=== PATIENT | female | born 1945 | race Caucasian/White ===

== ENCOUNTER 2017-08-12 16:38 | Inpatient (IN) | payer OTHER ==
[~2017-08-12] VITALS: Ht 154.9 cm; Wt 84.6 kg
--- NOTE | ~2017-08-12 | H ---
[facility] [place] [address] HISTORY AND PHYSICAL Name: MARYANA KIDD I Room #: 516-1 [facility] IN M.R.#: [id number] Admission: 08/12/17 Attend Phys: Chan Cruz MD Discharge: 08/20/17 Date of : 43 Report #: [id number] THIS REPORT FOR: //name// CC: Chan Garcia DATE OF SERVICE: 08/13/2017 HISTORY OF PRESENT ILLNESS: The patient is a 71-year-old white female originally admitted to [facility] with rectal bleeding. She was noted to be anemic and underwent EGD, which showed duodenal ulcers. Flexible sigmoidoscopy showed evidence of melena. This was performed on 07/29/2017. She was treated for healthcare-associated pneumonia and acute respiratory failure. She was noted to have an apparent sedation-induced respiratory insufficiency. She was noted to have premorbid O2 dependent COPD. She has medical complexity with generalized debilitation. She was admitted for acute in-hospital inpatient rehabilitation. PAST MEDICAL HISTORY: COPD O2, dependent, typically on 3 liters; nonischemic cardiomyopathy; mild pulmonary hypertension; diabetes mellitus type 2; hyperlipidemia; hypertension; GERD; history of breast cancer treated with readmission therapy, no chemotherapy; history of anemia. PAST SURGICAL HISTORY: Includes breast cancer and cholecystectomy. MEDICATIONS: Please see the full medication listing. Each of these was individually reconciled upon admission and includes vitamins, herbals and supplements, etc. SOCIAL HISTORY: with 2 dogs. She lives with her in a house. There were two steps in. She utilized a walker to get around and also has a wheelchair. HABITS: Ex-smoker, quitting over 10 years ago with a pack and a half per day for at least 30 years. No history of alcohol consumption. FAMILY HISTORY: Father of COPD. Mother had coronary artery disease. REVIEW OF SYSTEMS: No current complaints of chest pain, shortness of breath, abdominal discomfort. She does have a history of some chronic back pain. No other focal extremity pain complaints. She was on oxygen premorbidly. No current complaints of swallowing difficulties. PHYSICAL EXAMINATION: A 71-year-old white female, in no obvious distress. Last recorded temperature 36.7, pulse 76, respirations 20, blood pressure 137/68. She is sleepy, but will respond. [address] [address] HISTORY AND PHYSICAL Name: MARYANA KIDD I Room #: 516-1 [facility] IN .R.#: [id number] Admission: 08/12/17 Attend Phys: Chan Cruz MD Discharge: 08/20/17 Date of : 43 Report #: [id number] HEENT: Appeared to be benign. Nasal prong O2 is in place. CHEST: Some diffuse decreased breath sounds throughout. CARDIOVASCULAR: Sounded regular rate and rhythm. ABDOMEN: Bowel sounds positive, nontender. GENITOURINARY AND RECTAL: Deferred. EXTREMITIES: She has functional range of motion of both upper extremities. She notes a prior history of some rotator cuff problems. No obvious focal weakness. NEUROLOGIC: Lower extremities, no focal calf swelling. Strength is grade 4-/5. DTRs are trace to 1. Transfers have been min assist with short distance ambulation. ASSESSMENT: This is a 71-year-old white female with the following problem list: 1. Medical complexity with generalized debilitation. 2. Pulmonary rehabilitation. 3. Gastrointestinal bleed with multiple duodenal ulcers. 4. Acute respiratory failure. 5. Chronic obstructive pulmonary disease. 6. Chronic hypoxemic respiratory failure. 7. History of atrial fibrillation. 8. Heart disease. 9. Prior history of syncopal episode. PLAN: The patient was admitted for acute in-hospital inpatient rehabilitation. From a post-admission physician evaluation perspective, there are no relevant changes since the preadmission screening. Please see the above review of prior and current medical and functional conditions and comorbidities. Please see the previous and current functional status. As far as risk of complications, she has the multiple noted comorbidities. Plan of care involves the interdisciplinary acute inpatient rehabilitation program with the goal of maximizing her functional independence, so she can return back to the home setting. We would anticipate length of stay of probably at least 10 days pending progress. We will have the multiple senior application security consultant physicians involved along with the interdisciplinary rehabilitation team. Prognosis is reasonably good. <ELECTRONICALLY SIGNED> By: Chan Cruz MD 08/22/17 1423 0916 1039 Chan Cruz MD /[facility]
--- NOTE | ~2017-08-12 | HC ---
[facility] [place] [address] CONSULTATION Name: MARYANA KIDD I Room #: 516-1 [facility] IN M.R.#: [id number] Admission: 08/12/17 Attend Phys: Chan Cruz MD Discharge: 08/20/17 Date of : 43 Report #: [id number] THIS REPORT FOR: //name// CC: Chan Garcia DATE OF SERVICE: 08/15/2017 NEUROPSYCHOLOGY CONSULTATION LETTER CARRIER: Chan Nevarez, PhD REASON FOR CONSULTATION: To provide information pursuant to treatment planning for the patient's inpatient rehabilitation program. HISTORY OF PRESENT ILLNESS: Records indicate that the patient was admitted due to rectal bleeding, and examination indicated that she had duodenal ulcers. Review of her problem list in her history and physical reveals the following identified problems: 1. Medical complexity with generalized debilitation. 2. Pulmonary rehabilitation. 3. Gastrointestinal bleed with multiple duodenal ulcers. 4. Acute respiratory failure. 5. Chronic obstructive pulmonary disease. 6. Chronic hypoxemic respiratory failure. 7. History of atrial fibrillation. 8. Heart disease. 9. Prior history of syncopal episode. ASSESSMENT METHOD: Clinical interview, review of records, consultation with unit staff were conducted. RESULTS OF EXAMINATION: The patient was interviewed lying in her hospital bed, awake and alert, with a friendly and open manner. She stated she was feeling pretty good about herself because earlier in the day, she had taken her first 4 steps since being hospitalized. She stated that this gives her hope that she will continue to recover and return home. She reported that she has lived in the [place] area since 2000 when she and her moved here to be near their daughter and grandchild. 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 She reported that she has struggled with mild depression for many years since the of her mother, and said that she has taken generic Paxil for a long time and that this helped some. A mini-mental status exam-2 was administered and the patient achieved a perfect score, at the 86th percentile compared to same age peers. There are no noted [facility] [address] [place] [address] CONSULTATION Name: MARYANA KIDD I Room #: 516-1 [facility] IN M.R.#: [id number] Admission: 08/12/17 Attend Phys: Chan Cruz MD Discharge: 08/20/17 Date of : 43 Report #: [id number] deficits of cognitive function. SUMMARY AND RECOMMENDATIONS: This patient displays intact cognition and memory at this time. She reports mild depression, likely somewhat exacerbated by her hospitalization. She reports Paxil has been helpful in the past. Supportive therapy to address any depressive symptoms would be recommended. DIAGNOSIS: Unspecified depressive disorder. <ELECTRONICALLY SIGNED> By: Chan Nevarez, PhD 08/22/17 1510 1715 0333 Chan Nevarez PhD /lissette
--- NOTE | ~2017-08-12 | PLAN ---
[facility] [place] [address] REHAB UNIT PLAN OF CARE Name: MARYANA KIDD I Room #: 516-1 [facility] IN M.R.#: [id number] Admission: 08/12/17 Attend Phys: Chan Cruz MD Discharge: 08/20/17 Date of : 43 Report #: [id number] THIS REPORT FOR: //name// CC: Chan Garcia DATE OF SERVICE: 08/14/2017 HISTORY: The patient was seen back today in followup. She was in no distress. Last recorded temperature is 98.7, pulse 78, respirations 20, blood pressure 138/68. The patient has been involved with the therapy program. Transfers bed to wheelchair and mod assist utilizing the sliding board. Gait max assist 1 foot in the parallel bars. In occupational therapy, lower body dressing is dependent, upper body dressing is max assist. ASSESSMENT: 1. Medical complexity with generalized debilitation. 2. Pulmonary rehabilitation with acute on chronic hypoxemic respiratory failure. 3. Gastrointestinal bleed with melena related to duodenal ulcers. 4. Bilateral lower lobe infiltrates with pneumonia. 5. Chronic obstructive pulmonary disease. 6. History of atrial fibrillation. 7. Obstructive sleep apnea. PLAN: The overall plan of care is based on the preadmission screen, post-admission physician evaluation and information garnered from therapy assessments. 1. Estimated length of stay is probably at least 10 days pending progress. 2. Medical prognosis is reasonably good. 3. Anticipated interventions includes the interdisciplinary acute inpatient rehabilitation program. 4. Anticipated functional outcomes would hopefully for the patient to become modified independent at the walker versus wheelchair level. 5. Discharge destination would be back home with her . 6. Expected therapy by discipline include PT and OT 1-1/2 hours per day each five days a week throughout the duration of the acute inpatient rehabilitation stay. The multiple application security consultant physicians will continue to follow all the patient's on the acute rehab elam. <ELECTRONICALLY SIGNED> By: Chan Cruz MD 08/22/17 1423 0910 2254 Chan Cruz MD /[facility]
[~2017-08-12 16:38] MED LIST: ACCUNEB1.25 MG/3 IH; ACETAMINOPHEN325 M1 PO; ADULT LOW DOSE81 MG PO; ALBUTEROL2.5 MG/0.1 INH; AMARYL2 MG PO; AMBIEN 5 MG TABL5 M1 PO; AMLODIPINE BESY10 MG PO; ANASTROZOLE1 MG PO; ARIMIDEX1 MG PO; ASPIRIN81 M2 PO; ATORVASTATIN CA40 MG PO; AUGMENTIN 875-1 EACH PO; AVELOX 400 MG400 MG OR; CALCIUM 600 +1 EAC1 PO; CALCIUM CITRAT1 EA14 PO; CARAFATE 1 GM TA1 G1 PO; CARDIZEM CD180 MG PO; CITRACAL PLUS1 EACH PO; COZAAR 50 MG TA50 M2 PO; CRESTOR20 MG PO; DEXILANT60 MG PO; DIOVAN HCT 1601 EACH PO; DIOVAN HCT 3201 EACH PO; DUONEB 2.5-0.5 M3 ML INH; FISH OIL 1,2001 EAC4 PO; FISH OIL SOFTG1 EACH PO; GLIMEPIRIDE1 MG PO; GLUCOPHAGE500 MG PO; ICAPS AREDS FO1 EACH PO; ICAPS TABLET1 EACH PO; IRON325 PO; LEVAQUIN 500 M500 M2 PO; LIPITOR20 MG PO; METOPROLOL TART25 MG PO; MULTI VITAMIN1 EACH PO; NEPHROCAPS SOFT1 CAP PO; NEURONTIN 300300 M1 PO; NOVOLIN R100 UNIT/1; NYAMYC15 GM TOP; PAXIL10 MG PO; PREDNISONE 10 M10 MG; PREDNISONE 10 M10 MG PO; PREDNISONE 20 M20 MG; PREDNISONE 5 MG5 M1 PO; PRILOSEC20 MG PO; PROAIR HFA8.5 GM; PROTONIX40 M2 PO; ROSUVASTATIN CA20 MG PO; SPIRIVA; SYMBICORT160 MCG/4.; SYMBICORT160 MCG/4. INH; VITAMIN E400 UNI3 PO; VITAMIN E400 UNIT PO; ZOCOR40 MG PO
[2017-08-12 20:12] VITALS: BP 137/68
[2017-08-13 05:39] LABS: HEMATOCRIT 29.2 % (37.0-47.0); HEMOGLOBIN 9.5 gm/dL (12.0-15.0); MCH 31.4 pg (26.0-34.0); MCHC 32.6 g/dL (28.0-37.0); MCV 96.5 fL (80.0-100.0); RBC 3.03 mil/uL (4.20-5.00); RDW 17.5 % (10.5-14.5); WBC 9.5 thou/uL (4.0-11.0)
[2017-08-13 08:00] VITALS: BP 155/75
[2017-08-13 20:08] VITALS: BP 144/76
[2017-08-14 05:32] LABS: HEMATOCRIT 28.9 % (37.0-47.0); HEMOGLOBIN 9.6 gm/dL (12.0-15.0); MCH 31.9 pg (26.0-34.0); MCHC 33.1 g/dL (28.0-37.0); MCV 96.1 fL (80.0-100.0); PLATELET COUNT 158 thou/uL (150-400); RBC 3.01 mil/uL (4.20-5.00); RDW 17.6 % (10.5-14.5); WBC 9.1 thou/uL (4.0-11.0)
[2017-08-14 05:39] LABS: MANUAL DIFF YES
[2017-08-14 05:50] LABS: ALBUMIN 1.8 g/dL (3.4-5.0); CALCIUM 8.6 mg/dL (8.5-10.1); CREATININE 0.7 mg/dL (0.6-1.0); MAGNESIUM 1.7 mg/dL (1.8-2.4); POTASSIUM 3.9 mmol/L (3.5-5.1); TOTAL BILIRUBIN 0.3 mg/dL (<0.1-1.0); TOTAL PROTEIN 4.2 g/dL (6.4-8.2)
[2017-08-14 08:08] LABS: GLYCOHEMOGLOBIN (HGB A1C) 4.6 % (4.8-5.6)
[2017-08-14 08:55] VITALS: BP 141/65
[2017-08-14 09:07] LABS: ABSOLUTE NEUTROPHILS 7.7 thou/uL (1.4-8.2); ANISOCYTOSIS 1+; METAMYELOCYTES 3 %; MYELOCYTES 2 %; POLYCHROMASIA OCCASIONAL; TOTAL CELL COUNT 100
[2017-08-14 20:42] VITALS: BP 138/68
[2017-08-15 06:39] LABS: HEMATOCRIT 29.2 % (37.0-47.0); HEMOGLOBIN 9.6 gm/dL (12.0-15.0)
[2017-08-15 08:26] VITALS: BP 145/85
[2017-08-15 19:49] VITALS: BP 133/67
[2017-08-16 06:22] LABS: HEMATOCRIT 28.3 % (37.0-47.0); HEMOGLOBIN 9.5 gm/dL (12.0-15.0); MCH 31.9 pg (26.0-34.0); MCHC 33.4 g/dL (28.0-37.0); MCV 95.7 fL (80.0-100.0); RBC 2.96 mil/uL (4.20-5.00); RDW 16.7 % (10.5-14.5); WBC 8.8 thou/uL (4.0-11.0)
[2017-08-16 06:37] LABS: ANION GAP < 0 mmol/L (7-16); BUN 20 mg/dL (7-18); CALCIUM 8.8 mg/dL (8.5-10.1); CHLORIDE 101 mmol/L (98-107); CREATININE 0.7 mg/dL (0.6-1.0); GLUCOSE 81 mg/dL (74-106); POTASSIUM 3.1 mmol/L (3.5-5.1); SODIUM 144 mmol/L (136-145)
[2017-08-16 06:48] LABS: CO2 45 mmol/L (21-32)
[2017-08-16 20:16] VITALS: BP 130/49
[2017-08-17 10:10] VITALS: BP 139/63
[2017-08-17 20:00] VITALS: BP 128/59
[2017-08-18 06:17] LABS: HEMATOCRIT 27.9 % (37.0-47.0); HEMOGLOBIN 9.3 gm/dL (12.0-15.0); MCH 31.6 pg (26.0-34.0); MCHC 33.4 g/dL (28.0-37.0); MCV 94.7 fL (80.0-100.0); RBC 2.94 mil/uL (4.20-5.00); RDW 16.9 % (10.5-14.5)
[2017-08-18 06:30] LABS: BUN 15 mg/dL (7-18); CALCIUM 8.6 mg/dL (8.5-10.1); CHLORIDE 94 mmol/L (98-107); CREATININE 0.6 mg/dL (0.6-1.0); GLUCOSE 99 mg/dL (74-106); SODIUM 142 mmol/L (136-145)
[2017-08-18 06:34] LABS: POTASSIUM 2.7 mmol/L (3.5-5.1)
[2017-08-18 06:35] LABS: CO2 > 45 mmol/L (21-32)
[2017-08-18 08:00] VITALS: BP 132/59
[2017-08-18 11:50] LABS: ABG SAMPLE TYPE ARTERIAL; BE(vivo) 26.6 mmol/L (-2 to +3); HCO3 55.9 mmol/L (22.0-26.0); LACTATE 0.87 mmol/L (0.5-2.0); O2(CT) 14.2 mL/dL (15.0-23.0); O2Hb 84.2 % (92.0-98.0); PCO2 85.2 mmHg (35.0-45.0); PO2 50.3 mmHg (80.0-100.0); pH 7.435 (7.360-7.450); sO2 84.1 % (92.0-98.0); tCO2 58.5 mmol/L (24.0-30.0)
[2017-08-18 11:52] LABS: STICK SITE L.BRACHIAL
[2017-08-18 17:41] LABS: BUN 14 mg/dL (7-18); CALCIUM 9.1 mg/dL (8.5-10.1); CHLORIDE 91 mmol/L (98-107); CREATININE 0.6 mg/dL (0.6-1.0); GLUCOSE 137 mg/dL (74-106); MAGNESIUM 1.5 mg/dL (1.8-2.4); POTASSIUM 3.7 mmol/L (3.5-5.1); SODIUM 139 mmol/L (136-145)
[2017-08-18 17:43] LABS: CO2 > 45 mmol/L (21-32)
[2017-08-18 20:06] VITALS: BP 147/68
[2017-08-19 07:47] VITALS: BP 136/68
[2017-08-19 19:34] VITALS: BP 147/65
[2017-08-20 08:00] VITALS: BP 141/64
[2017-08-20 13:48] LABS: ABG SAMPLE TYPE ARTERIAL; BE(vivo) 19.4 mmol/L (-2 to +3); HCO3 46.7 mmol/L (22.0-26.0); O2(CT) 14.3 mL/dL (15.0-23.0); PCO2 70.8 mmHg (35.0-45.0); PO2 88.6 mmHg (80.0-100.0); Pressure Support 6 cm H20; STICK SITE L.BRACHIAL; pH 7.437 (7.360-7.450); sO2 96.6 % (92.0-98.0); tCO2 48.9 mmol/L (24.0-30.0)
[2017-08-20 14:06] LABS: HEMATOCRIT 27.8 % (37.0-47.0); HEMOGLOBIN 9.1 gm/dL (12.0-15.0); MCH 31.3 pg (26.0-34.0); MCHC 32.6 g/dL (28.0-37.0); RBC 2.9 mil/uL (4.20-5.00); RDW 16.6 % (10.5-14.5); WBC 7.8 thou/uL (4.0-11.0)
[2017-08-20 14:13] LABS: BUN 17 mg/dL (7-18); CALCIUM 9.1 mg/dL (8.5-10.1); CHLORIDE 94 mmol/L (98-107); CREATININE 0.7 mg/dL (0.6-1.0); GLUCOSE 141 mg/dL (74-106); POTASSIUM 3.5 mmol/L (3.5-5.1); SODIUM 139 mmol/L (136-145)
[2017-08-20 14:22] LABS: CO2 > 45 mmol/L (21-32)
[2017-08-20] MEDS ORDERED: FLONASE 0.05%50 MCG NASAL (17:12)
[2017-08-20] MEDS ORDERED: FLOMAX0.4 MG PO (17:12)
[2017-08-20] MEDS ORDERED: ACIDOPHILUS1 EAC4 PO (17:12)
[2017-08-20] MEDS ORDERED: ERGOCALCIF50000 UNIT PO (17:12)
[2017-08-20] MEDS ORDERED: COLACE 100 MG100 MG PO (17:12)
== END 2017-08-20 20:10 | disposition short-term general hospital (02) | DRG 947 ==
PROVIDERS: Hospitalist; Internal Medicine Gastroenterology; Internal Medicine Pulmonary Disease; Nurse Practitioner; Physical Medicine & Rehabilitation
DX: R53.81 Other malaise (principal); J96.21 Acute and chronic respiratory failure with hypoxia; J18.1 Lobar pneumonia, unspecified organism; K26.4 Chronic or unspecified duodenal ulcer with hemorrhage; I26.99 Other pulmonary embolism without acute cor pulmonale; E43 Unspecified severe protein-calorie malnutrition; J44.0 Chronic obstructive pulmonary disease with (acute) lower respiratory infection; I42.9 Cardiomyopathy, unspecified; N17.9 Acute kidney failure, unspecified; D62 Acute posthemorrhagic anemia; N39.0 Urinary tract infection, site not specified; E87.2 Acidosis; E87.3 Alkalosis; I48.91 Unspecified atrial fibrillation; G47.33 Obstructive sleep apnea (adult) (pediatric); K26.9 Duodenal ulcer, unspecified as acute or chronic, without hemorrhage or perforation; I27.20 Pulmonary hypertension, unspecified; K21.9 Gastro-esophageal reflux disease without esophagitis; E78.5 Hyperlipidemia, unspecified; I10 Essential (primary) hypertension; E11.9 Type 2 diabetes mellitus without complications; I35.0 Nonrheumatic aortic (valve) stenosis; K59.00 Constipation, unspecified; Z79.4 Long term (current) use of insulin; Z82.5 Family history of asthma and other chronic lower respiratory diseases; Z85.3 Personal history of malignant neoplasm of breast; Z82.49 Family history of ischemic heart disease and other diseases of the circulatory system; Z87.891 Personal history of nicotine dependence; Z68.35 Body mass index [BMI] 35.0-35.9, adult
CPT/HCPCS: 10112

== ENCOUNTER 2017-08-20 20:49 | Inpatient (IN) | payer OTHER ==
[~2017-08-20] VITALS: Ht 154.9 cm; Wt 68.5 kg
--- NOTE | ~2017-08-20 | 2DMMODE ---
[facility] [address] [place] [address] 2 D/M-MODE ECHOCARDIOGRAM Name: BERNABEMARYANA Room #: 355-P [facility] IN ..#: [id number] Admission: 08/20/17 Attend Phys: Marco A Bentley, Discharge: Date of : 43 Date of Service: 09/01/17 1248 Report #: [id number] THIS REPORT FOR: //name// APPROVED REPORT Study performed: 09/01/2017 12:16:53 EXAM: Comprehensive 2D, Doppler, and color-flow Echocardiogram Patient Location: Bedside Room #: [facility] Status: routine BSA: 1.67 HR: 75 bpm BP: 113/48 mmHg Other Information Study Quality: Adequate Indications COPD Pulmonary Embolism Pulmonary Hypertension Diabetes Dyspnea 2D Dimensions RVDd: 35.69 mm LVEF(%): 63.03 (>50%) IVSd: 11.40 (7-11mm) LVOT Diam: 21.18 (18-24mm) LVDd: 52.56 mm PWd: 11.28 (7-11mm) Ascending Ao: 33.08 (22-36mm) LVDs: 34.48 (25-40mm) Aortic Root: 27.07 mm IVC: 21.00 mm Last's LVEF: 63.03 % Volumes Left Atrial Volume (Systole) Single Plane 4CH: 26.50 mL Single Plane 2CH: 50.56 mL LA ESV Index: 24.00 mL/m2 Aortic Valve AoV Peak Axel.: 3.35 m/s AO Peak Gr.: 44.87 mmHg LVOT Max P.51 mmHg AO Mean Gr.: 25.68 mmHg LVOT Mean P.60 mmHg AO V2 Mean: 2.41 m/s LVOT Max V: 1.06 m/s AO V2 VTI: 75.64 cm LVOT Mean V: 0.76 m/s [facility] [employer] [place] [address] 2 D/M-MODE ECHOCARDIOGRAM Name: MARYANA KIDD I Room #: 355-P [facility] IN ..#: [id number] Admission: 08/20/17 Attend Phys: Marco A Bentley, Discharge: Date of : 43 Date of Service: 09/01/17 1248 Report #: [id number] RONAL (VTI): 1.24 cm2 LVOT V1 VTI: 26.56 cm RONAL Vmax: 1.12 cm2 SV (LVOT): 93.56 mL Mitral Valve E/A Ratio: 1.2 MV Decel. Time: 121.92 ms MV E Max Axel.: 1.00 m/s MV A Axel.: 0.85 m/s MV PHT: 35.36 ms IVRT: 193.77 ms Pulmonary Valve PV Peak Axel.: 1.06 m/s PV Peak Gr.: 4.47 mmHg Pulmonary Vein P Vein S: 0.58 m/s P Vein A: 0.29 m/s P Vein D: 0.50 m/s P Vein A Dur.: 87.7 msec P Vein S/D Ratio: 1.16 Tricuspid Valve TR Peak Axel.: 2.50 m/s TR Peak Gr.: 25.03 mmHg PA Pressure: 40.00 mmHg Left Ventricle The left ventricle is normal size. Regional wall motion is not well visualized but grossly normal. There is normal left ventricular wall thickness. The left ventricular systolic function is normal. The left ventricular ejection fraction is within the normal range. LVEF is 55-60%. The left ventricular diastolic function is normal. Right Ventricle The right ventricle is normal size. The right ventricular systolic function is normal. Atria The left atrium size is normal. Right atrium is at the upper limits of normal. Aortic Valve The aortic valve is moderately calcified Trace aortic regurgitation. There is moderate valvular aortic stenosis. Calculated aortic valve area is 1.1 cm2 with maximum pressure gradient of 45 mmHg and mean pressure gradient of 22 mmHg. [facility] [address] [place] [address] 2 D/M-MODE ECHOCARDIOGRAM Name: MARYANA KIDD Lakisha Room #: 355-P [facility] IN M.R.#: [id number] Admission: 08/20/17 Attend Phys: Marco A Bentley, Discharge: Date of : 43 Date of Service: 09/01/17 1248 Report #: [id number] Mitral Valve The mitral valve is normal in structure. Trace mitral regurgitation. No evidence of mitral valve stenosis. Tricuspid Valve The tricuspid valve is normal in structure. There is trace tricuspid regurgitation. Estimated PAP 35 mmHg. Pulmonic Valve The pulmonary valve is normal in structure. Trace pulmonic regurgitation. Great Vessels The aortic root is normal in size. IVC is dilated and collapses <50% with inspiration. Pericardium There is no pericardial effusion. <Conclusion> The left ventricular systolic function is normal. Regional wall motion is not well visualized but grossly normal. LVEF 55-60%. There is moderate valvular aortic stenosis, no insufficiency. Calculated aortic valve area 1.1 cm2 with maximum pressure gradient of 45 mmHg and mean pressure gradient of 22 mmHg. The mitral valve is normal in structure. Trace mitral regurgitation. Pulmonary artery pressure of 35mmHg There is no pericardial effusion. <ELECTRONICALLY SIGNED> By: Logan Ace MD, FACC 09/01/17 1248 1248 1248 Logan Ace MD, FACC /INF
[~2017-08-20 20:49] MED LIST changes: +ACIDOPHILUS1 EAC4 PO; +COLACE 100 MG100 MG PO; +ERGOCALCIF50000 UNIT PO; +FLOMAX0.4 MG PO; +FLONASE 0.05%50 MCG NASAL
[2017-08-20 23:55] VITALS: BP 136/59
[2017-08-21 04:23] VITALS: BP 132/57
[2017-08-21 06:45] LABS: HEMATOCRIT 26.9 % (37.0-47.0); HEMOGLOBIN 8.7 gm/dL (12.0-15.0); MCH 31.3 pg (26.0-34.0); MCHC 32.3 g/dL (28.0-37.0); MCV 96.8 fL (80.0-100.0); RBC 2.78 mil/uL (4.20-5.00); RDW 16.1 % (10.5-14.5); WBC 6.9 thou/uL (4.0-11.0)
[2017-08-21 06:53] LABS: BUN 16 mg/dL (7-18); CALCIUM 9.2 mg/dL (8.5-10.1); CHLORIDE 91 mmol/L (98-107); CREATININE 0.6 mg/dL (0.6-1.0); GLUCOSE 105 mg/dL (74-106); SODIUM 141 mmol/L (136-145)
[2017-08-21 07:33] LABS: CO2 > 45 mmol/L (21-32)
[2017-08-21 07:51] VITALS: BP 132/57
[2017-08-21 08:12] VITALS: BP 115/79
[2017-08-21 09:14] LABS: ABG SAMPLE TYPE ARTERIAL; BE(vivo) 20.8 mmol/L (-2 to +3); HCO3 47.2 mmol/L (22.0-26.0); O2(CT) 13.2 mL/dL (15.0-23.0); O2Hb 95.3 % (92.0-98.0); PCO2 65.2 mmHg (35.0-45.0); PO2 81.3 mmHg (80.0-100.0); STICK SITE L.BRACHIAL; pH 7.478 (7.360-7.450); sO2 96.2 % (92.0-98.0); tCO2 49.2 mmol/L (24.0-30.0)
[2017-08-21 09:15] LABS: Pressure Support 6 cm H20
[2017-08-21 11:36] VITALS: BP 139/71
[2017-08-21 16:24] VITALS: BP 126/58
[2017-08-21 19:07] VITALS: BP 117/44
[2017-08-22 04:13] VITALS: BP 125/57
[2017-08-22 06:02] LABS: HEMATOCRIT 26.9 % (37.0-47.0); HEMOGLOBIN 8.7 gm/dL (12.0-15.0)
[2017-08-22 07:09] VITALS: BP 135/65
[2017-08-22 10:43] LABS: BUN 15 mg/dL (7-18); CALCIUM 9.3 mg/dL (8.5-10.1); CHLORIDE 95 mmol/L (98-107); CREATININE 0.7 mg/dL (0.6-1.0); GLUCOSE 167 mg/dL (74-106); MAGNESIUM 1.6 mg/dL (1.8-2.4); POTASSIUM 4.1 mmol/L (3.5-5.1); SODIUM 139 mmol/L (136-145)
[2017-08-22 10:48] LABS: CO2 > 45 mmol/L (21-32)
[2017-08-22 11:07] VITALS: BP 120/47
[2017-08-22 15:20] VITALS: BP 120/59
[2017-08-22 20:10] VITALS: BP 124/67
[2017-08-23 03:30] VITALS: BP 129/67
[2017-08-23 05:30] LABS: BUN 17 mg/dL (7-18); CALCIUM 9.3 mg/dL (8.5-10.1); CHLORIDE 94 mmol/L (98-107); CREATININE 0.7 mg/dL (0.6-1.0); GLUCOSE 178 mg/dL (74-106); MAGNESIUM 1.7 mg/dL (1.8-2.4); POTASSIUM 4.5 mmol/L (3.5-5.1); SODIUM 138 mmol/L (136-145)
[2017-08-23 05:33] LABS: CO2 > 45 mmol/L (21-32)
[2017-08-23 07:11] VITALS: BP 124/64
[2017-08-23 11:14] VITALS: BP 122/62
[2017-08-23 15:43] VITALS: BP 96/48
[2017-08-23 20:00] VITALS: BP 119/57
[2017-08-24 04:00] VITALS: BP 129/63
[2017-08-24 06:48] LABS: ANION GAP < 0 mmol/L (7-16); BUN 24 mg/dL (7-18); CALCIUM 9.3 mg/dL (8.5-10.1); CHLORIDE 95 mmol/L (98-107); CREATININE 0.8 mg/dL (0.6-1.0); GLUCOSE 167 mg/dL (74-106); MAGNESIUM 2.4 mg/dL (1.8-2.4); POTASSIUM 4.2 mmol/L (3.5-5.1); SODIUM 138 mmol/L (136-145)
[2017-08-24 07:00] LABS: CO2 45 mmol/L (21-32)
[2017-08-24 07:45] VITALS: BP 125/62
[2017-08-24 11:51] VITALS: BP 117/52
[2017-08-24 15:30] VITALS: BP 125/52
[2017-08-24 19:14] VITALS: BP 126/61
[2017-08-25 04:00] VITALS: BP 131/59
[2017-08-25 07:57] VITALS: BP 142/69
[2017-08-25 11:35] VITALS: BP 122/55
[2017-08-25 16:17] VITALS: BP 121/63
[2017-08-25 19:47] VITALS: BP 127/66
[2017-08-26 05:01] VITALS: BP 141/70
[2017-08-26 06:40] LABS: HEMATOCRIT 26.4 % (37.0-47.0); HEMOGLOBIN 8.7 gm/dL (12.0-15.0); MCH 31.2 pg (26.0-34.0); MCHC 33.1 g/dL (28.0-37.0); MCV 94.4 fL (80.0-100.0); RBC 2.8 mil/uL (4.20-5.00); RDW 15.4 % (10.5-14.5); WBC 9.7 thou/uL (4.0-11.0)
[2017-08-26 07:10] VITALS: BP 131/64
[2017-08-26 11:11] VITALS: BP 124/57
[2017-08-26 15:11] VITALS: BP 130/55
[2017-08-26 19:38] VITALS: BP 123/54
[2017-08-27 03:25] VITALS: BP 121/61
[2017-08-27 04:11] LABS: HEMATOCRIT 26.7 % (37.0-47.0); HEMOGLOBIN 8.8 gm/dL (12.0-15.0); MCH 31.1 pg (26.0-34.0); MCHC 32.8 g/dL (28.0-37.0); MCV 94.6 fL (80.0-100.0); RBC 2.82 mil/uL (4.20-5.00); RDW 15.8 % (10.5-14.5); WBC 9.4 thou/uL (4.0-11.0)
[2017-08-27 04:31] LABS: CALCIUM 8.8 mg/dL (8.5-10.1); CREATININE 1.1 mg/dL (0.6-1.0); POTASSIUM 4.2 mmol/L (3.5-5.1)
[2017-08-27 07:30] VITALS: BP 115/65
[2017-08-27 11:19] VITALS: BP 124/60
[2017-08-27 15:35] VITALS: BP 121/48
[2017-08-27 20:00] VITALS: BP 124/52
[2017-08-28 04:00] VITALS: BP 123/57
[2017-08-28 07:51] VITALS: BP 128/56
[2017-08-28 11:08] VITALS: BP 124/55
[2017-08-28 15:19] VITALS: BP 123/54
[2017-08-28 19:36] VITALS: BP 118/60
[2017-08-29 03:48] VITALS: BP 138/54
[2017-08-29 05:58] LABS: HEMATOCRIT 26.5 % (37.0-47.0); HEMOGLOBIN 8.6 gm/dL (12.0-15.0); MCH 30.8 pg (26.0-34.0); MCHC 32.4 g/dL (28.0-37.0); MCV 95.1 fL (80.0-100.0); RBC 2.79 mil/uL (4.20-5.00); RDW 16.1 % (10.5-14.5); WBC 6.8 thou/uL (4.0-11.0)
[2017-08-29 06:16] LABS: CALCIUM 8.8 mg/dL (8.5-10.1); CREATININE 0.6 mg/dL (0.6-1.0); POTASSIUM 3.4 mmol/L (3.5-5.1)
[2017-08-29 07:47] VITALS: BP 128/60
[2017-08-29 11:38] VITALS: BP 126/61
[2017-08-29 16:48] VITALS: BP 121/54
[2017-08-29 20:24] VITALS: BP 128/58
[2017-08-30 03:55] VITALS: BP 124/65
[2017-08-30 08:14] VITALS: BP 134/65
[2017-08-30 12:18] VITALS: BP 121/51
[2017-08-30 16:33] VITALS: BP 123/65
[2017-08-30 20:23] VITALS: BP 108/50
[2017-08-31 07:24] VITALS: BP 122/55
[2017-08-31 15:26] VITALS: BP 133/63
[2017-08-31 19:09] VITALS: BP 135/54
[2017-09-01 05:26] LABS: HEMATOCRIT 25.5 % (37.0-47.0); HEMOGLOBIN 8.2 gm/dL (12.0-15.0); MCHC 32.3 g/dL (28.0-37.0); MCV 95.9 fL (80.0-100.0); RBC 2.66 mil/uL (4.20-5.00); RDW 15.9 % (10.5-14.5); WBC 4.9 thou/uL (4.0-11.0)
[2017-09-01 05:35] VITALS: BP 117/83
[2017-09-01 05:44] LABS: BUN 13 mg/dL (7-18); CALCIUM 9.4 mg/dL (8.5-10.1); CHLORIDE 98 mmol/L (98-107); CREATININE 0.5 mg/dL (0.6-1.0); GLUCOSE 86 mg/dL (74-106); POTASSIUM 3.7 mmol/L (3.5-5.1); SODIUM 143 mmol/L (136-145)
[2017-09-01 05:50] LABS: CO2 > 45 mmol/L (21-32)
[2017-09-01 08:43] VITALS: BP 113/48
[2017-09-01 11:54] VITALS: BP 132/61
[2017-09-01 12:34] LABS: ABG SAMPLE TYPE ARTERIAL; BE(vivo) 14.9 mmol/L (-2 to +3); HCO3 42.6 mmol/L (22.0-26.0); LACTATE 1.02 mmol/L (0.5-2.0); O2(CT) 12.2 mL/dL (15.0-23.0); O2Hb 92.4 % (92.0-98.0); PCO2 76.1 mmHg (35.0-45.0); PO2 69.4 mmHg (80.0-100.0); pH 7.366 (7.360-7.450); sO2 92.5 % (92.0-98.0); tCO2 44.9 mmol/L (24.0-30.0)
[2017-09-01 12:36] LABS: STICK SITE R.RADIAL
[2017-09-01 19:55] VITALS: BP 109/47
[2017-09-02 04:30] VITALS: BP 106/51
[2017-09-02 07:28] VITALS: BP 139/61
[2017-09-02 09:46] LABS: HEMATOCRIT 25.8 % (37.0-47.0); HEMOGLOBIN 8.4 gm/dL (12.0-15.0); MCH 30.8 pg (26.0-34.0); MCHC 32.5 g/dL (28.0-37.0); MCV 94.9 fL (80.0-100.0); RBC 2.71 mil/uL (4.20-5.00); RDW 16.4 % (10.5-14.5); WBC 5.1 thou/uL (4.0-11.0)
[2017-09-02 11:17] VITALS: BP 117/54
[2017-09-02 14:17] LABS: URINE BILIRUBIN NEGATIVE (Negative); URINE BLOOD NEGATIVE (Negative); URINE COLOR YELLOW; URINE GLUCOSE-RANDOM* NEGATIVE (Negative); URINE KETONES NEGATIVE (Negative); URINE NITRITE POSITIVE (Negative); URINE PROTEIN (DIPSTICK) NEGATIVE (Negative); URINE UROBILINOGEN 0.2 E.U./dl (0.2-1.0)
[2017-09-02 14:41] LABS: BACTERIA >30 Many /HPF (None Seen); CASTS None Seen /LPF (None Seen); CRYSTALS None Seen /LPF (None Seen); SQUAMOUS None Seen /LPF (0-3); URINE RBC None Seen /HPF (0-2); URINE WBC None Seen /HPF (0-5)
[2017-09-02 15:37] VITALS: BP 118/61
[2017-09-02 20:10] VITALS: BP 119/64
[2017-09-03 04:40] VITALS: BP 109/60
[2017-09-03 09:13] VITALS: BP 129/58
[2017-09-03 09:40] LABS: HEMATOCRIT 25.9 % (37.0-47.0); HEMOGLOBIN 8.4 gm/dL (12.0-15.0); MCH 30.5 pg (26.0-34.0); MCHC 32.6 g/dL (28.0-37.0); MCV 93.6 fL (80.0-100.0); RBC 2.77 mil/uL (4.20-5.00); RDW 16.2 % (10.5-14.5); WBC 7.7 thou/uL (4.0-11.0)
[2017-09-03 09:46] LABS: BUN 15 mg/dL (7-18); CALCIUM 9.4 mg/dL (8.5-10.1); CHLORIDE 93 mmol/L (98-107); CREATININE 0.6 mg/dL (0.6-1.0); GLUCOSE 256 mg/dL (74-106); MAGNESIUM 1.6 mg/dL (1.8-2.4); POTASSIUM 3.9 mmol/L (3.5-5.1); SODIUM 137 mmol/L (136-145)
[2017-09-03 09:51] LABS: CO2 > 45 mmol/L (21-32)
[2017-09-03 12:30] VITALS: BP 139/62
[2017-09-03 17:26] VITALS: BP 110/54
[2017-09-03 20:00] VITALS: BP 121/75
[2017-09-04 04:00] VITALS: BP 135/96
[2017-09-04 05:45] LABS: HEMATOCRIT 26.5 % (37.0-47.0); HEMOGLOBIN 8.6 gm/dL (12.0-15.0); MCH 30.8 pg (26.0-34.0); MCHC 32.5 g/dL (28.0-37.0); MCV 94.8 fL (80.0-100.0); RBC 2.79 mil/uL (4.20-5.00); RDW 16.3 % (10.5-14.5); WBC 8.9 thou/uL (4.0-11.0)
[2017-09-04 05:55] LABS: BUN 18 mg/dL (7-18); CALCIUM 9.4 mg/dL (8.5-10.1); CHLORIDE 95 mmol/L (98-107); CREATININE 0.6 mg/dL (0.6-1.0); GLUCOSE 136 mg/dL (74-106); MAGNESIUM 1.8 mg/dL (1.8-2.4); POTASSIUM 3.9 mmol/L (3.5-5.1); SODIUM 139 mmol/L (136-145)
[2017-09-04 05:57] LABS: CO2 > 45 mmol/L (21-32)
[2017-09-04 07:07] VITALS: BP 145/66
[2017-09-04 11:08] VITALS: BP 126/68
[2017-09-04 15:23] VITALS: BP 137/55
[2017-09-04 20:00] VITALS: BP 132/69
[2017-09-05 04:00] VITALS: BP 137/68
[2017-09-05 06:39] LABS: HEMATOCRIT 26.9 % (37.0-47.0); HEMOGLOBIN 8.7 gm/dL (12.0-15.0); MCH 30.4 pg (26.0-34.0); MCHC 32.2 g/dL (28.0-37.0); MCV 94.4 fL (80.0-100.0); RBC 2.85 mil/uL (4.20-5.00); RDW 16.2 % (10.5-14.5); WBC 7.2 thou/uL (4.0-11.0)
[2017-09-05 06:48] LABS: BUN 17 mg/dL (7-18); CHLORIDE 93 mmol/L (98-107); CREATININE 0.6 mg/dL (0.6-1.0); GLUCOSE 138 mg/dL (74-106); MAGNESIUM 1.8 mg/dL (1.8-2.4); SODIUM 140 mmol/L (136-145)
[2017-09-05 06:54] LABS: CO2 > 45 mmol/L (21-32)
[2017-09-05 07:50] VITALS: BP 141/68
[2017-09-05 11:25] VITALS: BP 136/63
[2017-09-05] MEDS ORDERED: IRON325 PO (11:27)
[2017-09-05] MEDS ORDERED: PREDNISONE 10 M10 MG PO (11:32)
[2017-09-05 11:42] VITALS: BP 141/68
== END 2017-09-05 16:30 | disposition home health service (06) | DRG 166 ==
LOC: 3W 20:49 → ENTRNSPT 09-05 16:32
PROVIDERS: Hospitalist; Internal Medicine; Internal Medicine Gastroenterology; Internal Medicine Pulmonary Disease; Nurse Practitioner; Nurse Practitioner Acute Care; Nurse Practitioner Family
PROC: 06H03DZ Insertion of Intraluminal Device into Inferior Vena Cava, Percutaneous Approach (ICD-10-PCS; principal; 2017-08-21)
PROC: 02HV33Z Insertion of Infusion Device into Superior Vena Cava, Percutaneous Approach (ICD-10-PCS; 2017-08-21)
PROC: 5A09557 Assistance with Respiratory Ventilation, Greater than 96 Consecutive Hours, Continuous Positive Airway Pressure (ICD-10-PCS; 2017-08-31)
DX: I26.99 Other pulmonary embolism without acute cor pulmonale (principal); J96.21 Acute and chronic respiratory failure with hypoxia; J96.22 Acute and chronic respiratory failure with hypercapnia; J18.9 Pneumonia, unspecified organism; K92.2 Gastrointestinal hemorrhage, unspecified; J98.11 Atelectasis; J44.0 Chronic obstructive pulmonary disease with (acute) lower respiratory infection; E44.1 Mild protein-calorie malnutrition; J44.1 Chronic obstructive pulmonary disease with (acute) exacerbation; E11.9 Type 2 diabetes mellitus without complications; I48.91 Unspecified atrial fibrillation; G47.33 Obstructive sleep apnea (adult) (pediatric); K29.70 Gastritis, unspecified, without bleeding; E87.6 Hypokalemia; K27.9 Peptic ulcer, site unspecified, unspecified as acute or chronic, without hemorrhage or perforation; S90.822A Blister (nonthermal), left foot, initial encounter; X58.XXXA Exposure to other specified factors, initial encounter; D64.9 Anemia, unspecified; Z79.899 Other long term (current) drug therapy; Z90.49 Acquired absence of other specified parts of digestive tract; Z85.3 Personal history of malignant neoplasm of breast; Z87.891 Personal history of nicotine dependence; Z68.28 Body mass index [BMI] 28.0-28.9, adult; Y93.89 Activity, other specified; Y92.89 Other specified places as the place of occurrence of the external cause; Y99.8 Other external cause status
CPT/HCPCS: 10779

== ENCOUNTER 2017-09-29 17:18 | Inpatient (IN) | payer OTHER ==
[~2017-09-29] VITALS: Ht 154.9 cm; Wt 68.2 kg
--- NOTE | ~2017-09-29 | EKG ---
[place] [address] [facility] [place] [address] ELECTROCARDIOGRAM REPORT Name: MARYANA KIDD I Room #: [facility] Ryley#: [id number] Admission: 09/29/17 Attend Phys: Discharge: Date of : 43 Report #: [id number] THIS REPORT FOR: //name// [facility] ED Test Date: 2017-09-29 Test Time: 17:28:18 Pat Name: MARYANA KIDD Department: Room: Gender: F Suppression Crew Leader: PRIYANKA : 1945 Requested By: Lg De Order Number: [id number] MD: Minor Silva Measurements Intervals [place] Rate: 82 P: 61 WI: 119 QRS: 53 QRSD: 89 T: 34 QT: 392 QTc: 458 Interpretive Statements Sinus rhythm Borderline short WI interval Minimal ST elevation, anterior leads Compared to ECG 08/05/2017 13:31:07 ST (T wave) deviation now present Sinus tachycardia no longer present Electronically Signed On 09-29-2017 18:26:40 DIRECTOR OF KIDS by Minor Silva [email or web address] <ELECTRONICALLY SIGNED> By: Minor Silva MD 09/29/17 1826 27 27 Minor Silva MD /[facility]
--- NOTE | ~2017-09-29 | EKG ---
[address] [address] ELECTROCARDIOGRAM REPORT Name: MARYANA KIDD I Room #: 206-P ADM IN M.R.#: [id number] Admission: 09/29/17 Attend Phys: Moshe Santa DO Discharge: Date of : 43 Report #: [id number] THIS REPORT FOR: //name// [facility] Test Date: 2017-09-30 Test Time: 06:17:51 Pat Name: MARYANA KIDD Department: Room: 206 P Gender: F Planer Stone: CRISTIAN : 1945 Requested By: Guillermo Adams Order Number: [id number] MD: Logan Ace Measurements Intervals [place] Rate: 79 P: 68 CT: 122 QRS: 65 QRSD: 82 T: 53 QT: 388 QTc: 445 Interpretive Statements Sinus rhythm No significant abnormality Compared to ECG 09/29/2017 17:28:18 ST (T wave) deviation no longer present Electronically Signed On 09-30-2017 8:16:09 PROGRESS CLERK by Logan Ace [email or web address] <ELECTRONICALLY SIGNED> By: Logan Ace MD, [facility] 09/30/1716 6 6 Logan Ace MD, [facility] /EPI
[2017-09-29 17:20] VITALS: BP 142/67
[2017-09-29 17:36] LABS: ABG SAMPLE TYPE ARTERIAL; BE(vivo) 19.1 mmol/L (-2 to +3); HCO3 47.4 mmol/L (22.0-26.0); LACTATE 1.28 mmol/L (0.5-2.0); O2(CT) 13.9 mL/dL (15.0-23.0); O2Hb 94.4 % (92.0-98.0); PO2 76.2 mmHg (80.0-100.0); pH 7.391 (7.360-7.450); sO2 94.4 % (92.0-98.0); tCO2 49.8 mmol/L (24.0-30.0)
[2017-09-29 17:37] LABS: ABSOLUTE NEUTROPHILS 6.9 thou/uL (1.4-8.2); BASOPHILS 0.7 % (0.0-2.0); EOSINOPHILS 1.1 % (0.0-3.0); HEMOGLOBIN 9.8 gm/dL (12.0-15.0); LYMPHOCYTES 10.5 % (24.0-44.0); MCH 30.5 pg (26.0-34.0); MCHC 32.8 g/dL (28.0-37.0); MCV 92.8 fL (80.0-100.0); MONOCYTES 10.1 % (1.0-8.0); PLATELET COUNT 215 thou/uL (150-400); POLYS 77.6 % (36.0-66.0); RBC 3.23 mil/uL (4.20-5.00); RDW 15.6 % (10.5-14.5); WBC 8.9 thou/uL (4.0-11.0)
[2017-09-29 17:37] LABS: PCO2 79.9 mmHg (35.0-45.0); STICK SITE R.RADIAL
[2017-09-29] MEDS ORDERED: LIPITOR80 MG PO (17:38)
[2017-09-29] MEDS ORDERED: ZOLPIDEM TARTRA10 MG PO (17:38)
[2017-09-29 17:39] LABS: MANUAL DIFF NO
[2017-09-29] MEDS ORDERED: PAXIL20 MG PO (17:39)
[2017-09-29 17:48] LABS: BUN 19 mg/dL (7-18); CALCIUM 9.8 mg/dL (8.5-10.1); CHLORIDE 95 mmol/L (98-107); GLUCOSE 144 mg/dL (74-106); POTASSIUM 3.4 mmol/L (3.5-5.1); SODIUM 139 mmol/L (136-145)
[2017-09-29 17:51] LABS: CO2 > 45 mmol/L (21-32)
[2017-09-29 17:58] LABS: TROPONIN-I < 0.04 ng/mL (<0.06)
[2017-09-29 19:37] VITALS: BP 150/72
[2017-09-29 19:38] VITALS: BP 151/60
[2017-09-29 20:21] VITALS: BP 144/69
[2017-09-29 23:24] VITALS: BP 144/70
[2017-09-30 01:29] LABS: HEMATOCRIT 28.2 % (37.0-47.0); HEMOGLOBIN 9.2 gm/dL (12.0-15.0); MCH 30.2 pg (26.0-34.0); MCHC 32.5 g/dL (28.0-37.0); MCV 92.8 fL (80.0-100.0); RBC 3.03 mil/uL (4.20-5.00); RDW 15.3 % (10.5-14.5); WBC 6.1 thou/uL (4.0-11.0)
[2017-09-30 01:38] LABS: ANION GAP < 0 mmol/L (7-16); BUN 22 mg/dL (7-18); CALCIUM 9.2 mg/dL (8.5-10.1); CHLORIDE 95 mmol/L (98-107); CO2 44 mmol/L (21-32); CREATININE 1.1 mg/dL (0.6-1.0); GLUCOSE 297 mg/dL (74-106); SODIUM 138 mmol/L (136-145)
[2017-09-30 01:39] LABS: POTASSIUM 4.6 mmol/L (3.5-5.1)
[2017-09-30 03:58] VITALS: BP 142/68
[2017-09-30 07:45] VITALS: BP 138/67
[2017-09-30 11:50] VITALS: BP 118/60
[2017-09-30 15:45] VITALS: BP 111/59
[2017-09-30 19:42] VITALS: BP 128/80
[2017-10-01 03:49] VITALS: BP 128/64
[2017-10-01 03:49] LABS: HEMOGLOBIN 8.4 gm/dL (12.0-15.0); MANUAL DIFF YES; MCH 29.9 pg (26.0-34.0); MCHC 32.3 g/dL (28.0-37.0); MCV 92.3 fL (80.0-100.0); PLATELET COUNT 215 thou/uL (150-400); RBC 2.82 mil/uL (4.20-5.00); RDW 15.9 % (10.5-14.5); WBC 12.8 thou/uL (4.0-11.0)
[2017-10-01 03:59] LABS: CALCIUM 9.1 mg/dL (8.5-10.1); CREATININE 1.4 mg/dL (0.6-1.0)
[2017-10-01 04:43] LABS: ABSOLUTE NEUTROPHILS 12.3 thou/uL (1.4-8.2); ANISOCYTOSIS 1+; NUCLEATED RBCS 1 /100WBC; TOTAL CELL COUNT 100
[2017-10-01 07:48] VITALS: BP 122/63
[2017-10-01] MEDS ORDERED: MEDROL DOSPAK21 TA1 PO (09:28)
[2017-10-01 11:07] VITALS: BP 130/57
[2017-10-01] MEDS ORDERED: PREDNISONE 10 M10 MG PO (11:41)
[2017-10-01 12:19] VITALS: BP 130/57
== END 2017-10-01 13:03 | disposition home or self-care (01) | DRG 189 ==
LOC: ER 17:18 → EROBS 19:07 → 2N 19:07 → ENTRNSPT 10-01 12:50 → EDTRNSPTSTS 10-01 12:52 → 2N 10-01 13:03
PROVIDERS: Emergency Medicine; Family Medicine; Nurse Practitioner Family
PROC: 5A09357 Assistance with Respiratory Ventilation, Less than 24 Consecutive Hours, Continuous Positive Airway Pressure (ICD-10-PCS; principal; 2017-09-29)
PROC: 5A09357 Assistance with Respiratory Ventilation, Less than 24 Consecutive Hours, Continuous Positive Airway Pressure (ICD-10-PCS; 2017-09-30)
PROC: 5A09357 Assistance with Respiratory Ventilation, Less than 24 Consecutive Hours, Continuous Positive Airway Pressure (ICD-10-PCS; 2017-10-01)
DX: J96.21 Acute and chronic respiratory failure with hypoxia (principal); J44.1 Chronic obstructive pulmonary disease with (acute) exacerbation; I42.9 Cardiomyopathy, unspecified; J96.22 Acute and chronic respiratory failure with hypercapnia; I25.10 Atherosclerotic heart disease of native coronary artery without angina pectoris; I35.0 Nonrheumatic aortic (valve) stenosis; F32.9 Major depressive disorder, single episode, unspecified; E11.22 Type 2 diabetes mellitus with diabetic chronic kidney disease; I12.9 Hypertensive chronic kidney disease with stage 1 through stage 4 chronic kidney disease, or unspecified chronic kidney disease; N18.9 Chronic kidney disease, unspecified; E78.5 Hyperlipidemia, unspecified; K21.9 Gastro-esophageal reflux disease without esophagitis; I48.0 Paroxysmal atrial fibrillation; I65.29 Occlusion and stenosis of unspecified carotid artery; I70.208 Unspecified atherosclerosis of native arteries of extremities, other extremity; C50.919 Malignant neoplasm of unspecified site of unspecified female breast; Z99.81 Dependence on supplemental oxygen; Z86.711 Personal history of pulmonary embolism; Z90.49 Acquired absence of other specified parts of digestive tract; Z85.3 Personal history of malignant neoplasm of breast; Z79.899 Other long term (current) drug therapy; Z79.84 Long term (current) use of oral hypoglycemic drugs; Z87.891 Personal history of nicotine dependence
CPT/HCPCS: 10081

== ENCOUNTER 2017-10-20 08:58 | Inpatient (IN) | payer OTHER ==
[~2017-10-20] VITALS: Ht 154.9 cm; Wt 68.3 kg
[2017-10-20] VITALS (29 sets, daily range): BP systolic 91–143; BP diastolic 61–85
--- NOTE | ~2017-10-20 | HC ---
[facility] [place] [address] CONSULTATION Name: MARYANA KIDD I Room #: 352-P ADM IN M.R.#: [id number] Admission: 10/20/17 Attend Phys: Byron Zapata DO Discharge: Date of : 43 Report #: [id number] THIS REPORT FOR: //name// CC: [facility] physician/PCP Byron Zapata DO DATE OF SERVICE: 10/20/2017 PULMONARY CONSULTATION REFERRING PROVIDER: Byron Zapata DO REASON FOR CONSULTATION: Respiratory failure. CHIEF COMPLAINT: Altered mental status. HISTORY OF PRESENT ILLNESS: Our group was asked to see the patient in consultation while hospitalized at [facility], seen in the Emergency Department early this morning. Discussed with Dr. Ba and family and also seen this evening. The patient is well known to me from office visits and prior admissions. A 71-year-old woman with a history of very severe COPD as well as recent upper GI bleed and a history of a small pulmonary emboli for which she has an IVC filter and been having more lethargy over the last couple of days. It has been noted that she has been having a better day yesterday. No cough or sputum production or fevers, wore her BiPAP. She usually wears to sleep in the evening; however, took it off in the middle of the night and then the patient was less responsive this morning, brought to the Emergency Department and subsequently intubated for being obtunded, was noted to be hypercapnic. After being placed on mechanical ventilatory support, which is improved throughout the day, some airway secretions noted. No fevers, chills or sweats reported. The patient has been compliant with her home therapy. ALLERGIES: No known drug allergies. PAST MEDICAL HISTORY: 1. Severe COPD. 2. Recent upper GI bleed. 3. History of aortic stenosis. 4. Chronic hypercapnic respiratory failure and hypoxemic respiratory failure. 5. Diabetes mellitus type 2. 6. History of breast cancer. 7. Hypertension. SOCIAL HISTORY: The patient currently lives with , is a remote smoker, no alcohol consumption. [facility] [address] [place] [address] CONSULTATION Name: MARYANA KIDD I Room #: 352-P [facility] IN M.R.#: [id number] Admission: 10/20/17 Attend Phys: Byron Zapata DO Discharge: Date of : 43 Report #: [id number] FAMILY HISTORY: Noncontributory. REVIEW OF SYSTEMS: Otherwise, unobtainable from the patient due to her current status. PHYSICAL EXAMINATION: VITAL SIGNS: Afebrile, pulse 80s, respiratory rate 14, blood pressure 106/66. GENERAL: This is a pleasant elderly woman, poorly responsive on the vent. ENT: Endotracheal tube in place. NECK: Supple without adenopathy. LUNGS: Diminished, prolonged expiratory phase with occasional wheezes. CARDIOVASCULAR: Heart regular. No murmurs or gallops. ABDOMEN: Soft, nontender, no masses. EXTREMITIES: With trace edema. They are warm with 2+ pulses. LABORATORY DATA: Chest x-ray revealed some mild right upper and right lower lobe infiltrates. Chemistry profile: Sodium 138, potassium 4.9, chloride 96, bicarbonate 40, BUN 22, creatinine 1.2, glucose 264. White blood cell count 15,000; hemoglobin 10, hematocrit 32, platelet count 289. Arterial blood gas this evening on assist control, tidal volume 450, rate of 14, PEEP of 5 revealed pH 7.50, pCO2 of 42, pO2 of 134, bicarbonate 32. IMPRESSION: 1. Pneumonia, possibly related to aspiration. 2. Altered mental status, likely due to hypercapnia. 3. Acute on chronic hypercapnic respiratory failure. 4. Chronic obstructive pulmonary disease with exacerbation and some features of end-stage disease. 5. General debilitation. 6. Recent upper gastrointestinal bleed. 7. Prior history of pulmonary embolism. 8. Aortic stenosis. SUGGESTIONS: 1. Continue sedation overnight. 2. Sedation in a.m. and reevaluate pulmonary status to see the patient is weanable from mechanical ventilatory support. 3. Antibiotics per infectious disease service. 4. Continue bronchodilators. 5. Continue systemic steroids. 6. Monitor hemoglobin. 7. [place] [address] CONSULTATION Name: MARYANA KIDD I Room #: 352-P [facility] IN M.R.#: [id number] Admission: 10/20/17 Attend Phys: Byron Zapata DO Discharge: Date of : 43 Report #: [id number] Thank you for requesting our suggestions. We will follow along. <ELECTRONICALLY SIGNED> By: Mundo Holt MD 10/24/17 1726 2054 0241 Mundo Holt MD /nt
--- NOTE | ~2017-10-20 | HC ---
[facility] [place] [address] CONSULTATION Name: BERNABEMARYANA I Room #: 243-P ADM IN M.R.#: [id number] Admission: 10/20/17 Attend Phys: Byron Zapata DO Discharge: Date of : 43 Report #: [id number] THIS REPORT FOR: //name// CC: [facility] physician/PCP Byron Zapata REASON FOR CONSULTATION: I was asked to evaluate concerning pneumonia. HISTORY OF PRESENT ILLNESS: The patient is a 71-year-old with underlying history of COPD, atrial fibrillation, coronary artery disease, hypertension, aortic stenosis, breast cancer, and pulmonary emboli. She was dismissed from the hospital with a COPD exacerbation weeks ago. For the last several days, she has had generalized weakness. found her early this morning with her CPAP off and she was unresponsive. He placed it back on, but she did not improve and EMS was called. In the emergency room, she was hypoxic and was electively intubated. The patient now is alert and responsive. Hemodynamically, she has remained stable. No documented fever. She has had occasional cough with no nausea or vomiting. No travel or HIV risk factors. No recent culture results during her last hospital stay. ALLERGIES: None known. MEDICATIONS: As noted on DEC, having been given Levaquin and Zosyn in the emergency room. Other medications have included Arimidex for her breast cancer, Neurontin, zolpidem, Paxil, Symbicort, Glucophage, amlodipine, albuterol, calcium, vitamin D, metoprolol, multivitamin, Lipitor, and Spiriva. PAST MEDICAL HISTORY: COPD who is on BiPAP at home as well as continuous oxygen 6-7 liters. She has diabetes, atrial fibrillation, previous GI bleed, previous pulmonary embolus, hypertension, cholecystectomy, lumpectomy and radiation for breast cancer, now on Arimidex; aortic stenosis, tibial fracture, hyperlipidemia, anxiety, and depression. FAMILY HISTORY: Noncontributory. SOCIAL HISTORY: Past smoker, no significant alcohol intake. REVIEW OF SYSTEMS: Noted above with no additions. There is no nausea, vomiting, diarrhea, dysuria, or frequency. She has had no rashes. PHYSICAL EXAMINATION: VITAL SIGNS: Afebrile, hemodynamically stable. She is on 50% FiO2. Hemodynamically stable. GENERAL: Alert and responsive. She was orally intubated. CHEST: Coarse in the right side. [facility] [address] [place] [address] CONSULTATION Name: MARYANA KIDD Lakisha Room #: 243-P [facility] IN .R.#: [id number] Admission: 10/20/17 Attend Phys: Byron Zapata DO Discharge: Date of : 43 Report #: [id number] HEART: Regular with a 1/6 systolic murmur heard best at the left sternal border. ABDOMEN: Obese, soft, nontender, no hepatosplenomegaly or mass. HEENT: Unremarkable. NEUROLOGIC: Nonfocal. No decubiti or adenopathy. LABORATORY STUDIES: Sodium 138, potassium 4.9, bicarb of 40, creatinine 1.2, blood glucose 264. Hemoglobin 10.2, white count was 15.3, platelet count was 289,000. Differential, 92% segs and 4% bands. Urinalysis, 2+ protein, otherwise unremarkable. Chest x-ray shows right upper and right lower lobe infiltrate. The right lower lobe infiltrate appears mostly prominent. IMPRESSION: A 71-year-old with chronic obstructive pulmonary disease, oxygen dependent who just completed a prednisone taper for her recent chronic obstructive pulmonary disease exacerbation. Now presents with pneumonia and respiratory failure. Given her recent hospital stay, must include community-acquired and healthcare-associated organisms. We would recommend obtaining cultures of blood, sputum, check urine antigen and nasopharyngeal swab for viral respiratory panel. Check influenza antigen as well. Give empiric antibiotic coverage with vancomycin, cefepime, azithromycin, and Tamiflu as well as continue with Solu-Medrol. Continue full support, hopefully be able to wean off the ventilator within the next 24-48 hours. <ELECTRONICALLY SIGNED> By: Castro Angel MD 10/20/17 1833 1451 1826 Castro Angel MD /nt
--- NOTE | ~2017-10-20 | HC ---
[facility] [place] [address] CONSULTATION Name: MARYANA KIDD I Room #: 356-P ADM IN M.R.#: [id number] Admission: 10/20/17 Attend Phys: Byron Zapata DO Discharge: Date of : 43 Report #: [id number] THIS REPORT FOR: //name// CC: [facility] physician/PCP Byron Zapata DATE OF SERVICE: 10/24/2017 HISTORY OF PRESENT ILLNESS: The patient is a 71-year-old white female, previously known to me, who was home with her when she complained that her legs were weak and slid on to the kitchen floor. She had worsening shortness of breath. She was admitted and noted to have pneumonia and respiratory failure. She had an acute exacerbation of COPD. She was intubated and has subsequently been extubated. She was treated with IV amiodarone and Cardizem; she has now been converted to p.o. She is continuing on IV antibiotics for her pneumonia. The patient is being closely followed by Pulmonary Medicine and Infectious Disease as well as Internal Medicine. Cardiology is involved with her atrial fibrillation. She is currently in normal sinus rhythm. We are seeing her in rehabilitation medicine consultation. PAST MEDICAL HISTORY: Includes a prior GI bleed with gastric ulcers actually needing 8 units of blood back in 07/2017. She did undergo an acute in-hospital inpatient rehabilitation at that point in time. She does have a history of diabetes mellitus, and atrial fibrillation. She has had a recent pulmonary embolism, right lower lobe, and has undergone an IVC filter. She has history of aortic stenosis. MEDICATIONS: Please see the full medication listing. SOCIAL HISTORY: Lives in a house with her spouse, 2 steps in. Premorbid front-wheeled walker ambulator, was on 6-7 liters premorbidly and was on BiPAP and Trilogy. ALLERGIES: No known drug allergies. HABITS: Past tobacco abuse. REVIEW OF SYSTEMS: Did not offer any current complaints of chest pain, shortness of breath or abdominal discomfort. She was able to do her own ADLs for the most part. She did need some assistance from her as far as sit to stand from lower surfaces, especially later in the day when she would become fatigued. No focal extremity pain complaints. PHYSICAL EXAMINATION: GENERAL: A 71-year-old white female in no obvious distress. VITAL SIGNS: Last recorded temperature 97.9, pulse 71, respirations 18, and [facility] [address] [place] [address] CONSULTATION Name: MARYANA KIDD I Room #: 356-P [facility] IN .R.#: [id number] Admission: 10/20/17 Attend Phys: Byron Zapata DO Discharge: Date of : 43 Report #: [id number] blood pressure 153/74. NEUROLOGIC: She is alert. She is currently on nasal prong with 2-5 liters. Facies are symmetric. Follows basic 1 step commands. Functional range of motion of both upper extremities. Strength is grade 3+ to 4-/5. DTRs are trace to 1. Lower extremities, no focal calf swelling. Functional range of motion with strength grade 3+ to 4-/5. She was mod assist with sit to stand and did ambulate 6 steps mod assist, bed to chair. ASSESSMENT: A 71-year-old white female with the following problem list: 1. Medical complexity with generalized debilitation. 2. Pulmonary rehabilitation. 3. Pneumonia, right upper and right lower lobe. 4. Acute hypoxemic respiratory failure, subsequently extubated. 5. Diabetes mellitus. 6. Prior history of a significant gastrointestinal bleed. 7. Pulmonary embolism in the past, status post IVC filter. 8. History of breast cancer. 9. Hypertension. 10. Atrial fibrillation with conversion to normal sinus rhythm. 11. History of aortic stenosis. PLAN: Therapy evaluations are continuing. We will need to see how the patient does as far as her transfers, functional mobility and ADL issues. She is motivated to eventually return back home as soon as she is able. She certainly may be a candidate for a short in-hospital inpatient rehabilitation stay, where we can work on maximizing her functional independence and endurance and where the multiple lean consultant physicians could continue to follow regarding her multiple medical comorbidities. At this point in time, we will be glad to continue to follow along with you regarding her rehab therapy needs. <ELECTRONICALLY SIGNED> By: Chan Cruz MD 10/27/17 1509 1225 0040 Chan Cruz MD /PMT
--- NOTE | ~2017-10-20 | EKG ---
[address] [employer] 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
--- NOTE | ~2017-10-20 | EKG ---
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 : [id number] Requested By: Minor Silva Order Number: [id number] MD: Logan Ace Measurements Intervals [place] Rate: 79 P: 47 CO: 114 QRS: 44 QRSD: 87 T: 27 QT: 357 QTc: 410 Interpretive Statements Sinus rhythm Borderline short [place] interval Compared to ECG 10/25/2017 14:50:44 No significant change was found Electronically Signed On 10-27-2017 8:03:57 CARDIOLOGY MANAGER by Logan Ace [email or web address] <ELECTRONICALLY SIGNED> By: Logan Ace MD, [facility] 10/27/17 0803 1601 160 Logan Ace MD, [facility] /EPI
[~2017-10-20 08:58] MED LIST changes: +LIPITOR80 MG PO; +MEDROL DOSPAK21 TA1 PO; +PAXIL20 MG PO; +SPIRIVA INH; -SYMBICORT160 MCG/4.; +ZOLPIDEM TARTRA10 MG PO
[2017-10-20 09:33] LABS: HEMATOCRIT 32.3 % (37.0-47.0); HEMOGLOBIN 10.2 gm/dL (12.0-15.0); MCH 29.7 pg (26.0-34.0); MCHC 31.5 g/dL (28.0-37.0); MCV 94.4 fL (80.0-100.0); PLATELET COUNT 289 thou/uL (150-400); RBC 3.42 mil/uL (4.20-5.00); RDW 15.8 % (10.5-14.5); WBC 15.3 thou/uL (4.0-11.0)
[2017-10-20 09:36] LABS: CALCIUM 8.9 mg/dL (8.5-10.1); CREATININE 1.2 mg/dL (0.6-1.0); POTASSIUM 4.9 mmol/L (3.5-5.1)
[2017-10-20 10:02] LABS: ABSOLUTE NEUTROPHILS 14.1 thou/uL (1.4-8.2); ANISOCYTOSIS 1+; LARGE PLATELETS OCCASIONAL; PLATELET ESTIMATE NORMAL
[2017-10-20 10:34] LABS: BE(vivo) 7.2 mmol/L (-2 to +3); HCO3 36.3 mmol/L (22.0-26.0); PCO2 80.1 mmHg (35.0-45.0); pH 7.274 (7.360-7.450); sO2 99.7 % (92.0-98.0)
[2017-10-20 12:24] LABS: URINE BILIRUBIN NEGATIVE (Negative); URINE BLOOD NEGATIVE (Negative); URINE CLARITY SL CLOUDY; URINE COLOR YELLOW; URINE GLUCOSE-RANDOM* NEGATIVE (Negative); URINE KETONES NEGATIVE (Negative); URINE LEUKOCYTES-REFLEX NEGATIVE (Negative); URINE NITRITE-REFLEX NEGATIVE (Negative); URINE PROTEIN (DIPSTICK) 2+ (Negative); URINE SPECIFIC GRAVITY >= 1.030 (1.005-1.035); URINE UROBILINOGEN 0.2 E.U./dl (0.2-1.0)
[2017-10-20 17:38] LABS: BE(vivo) 8.4 mmol/L (-2 to +3); HCO3 32.3 mmol/L (22.0-26.0); PCO2 42.4 mmHg (35.0-45.0); PO2 133.8 mmHg (80.0-100.0); sO2 98.9 % (92.0-98.0)
[2017-10-21] VITALS (49 sets, daily range): BP systolic 83–143; BP diastolic 56–84
[2017-10-21 05:23] LABS: BE(vivo) 9.8 mmol/L (-2 to +3); HCO3 35.7 mmol/L (22.0-26.0); PCO2 57.5 mmHg (35.0-45.0); PO2 78.3 mmHg (80.0-100.0); pH 7.411 (7.360-7.450); sO2 95.4 % (92.0-98.0)
[2017-10-21 05:37] LABS: HEMATOCRIT 24.9 % (37.0-47.0); HEMOGLOBIN 8.3 gm/dL (12.0-15.0); MCH 30.7 pg (26.0-34.0); MCHC 33.5 g/dL (28.0-37.0); MCV 91.8 fL (80.0-100.0); RBC 2.71 mil/uL (4.20-5.00); RDW 15.1 % (10.5-14.5); WBC 7.4 thou/uL (4.0-11.0)
[2017-10-21 05:44] LABS: PLATELET COUNT 179 thou/uL (150-400)
[2017-10-21 06:03] LABS: ALBUMIN 2.2 g/dL (3.4-5.0); CALCIUM 7.6 mg/dL (8.5-10.1); CREATININE 1.2 mg/dL (0.6-1.0); POTASSIUM 4.1 mmol/L (3.5-5.1); TOTAL BILIRUBIN 0.3 mg/dL (<0.1-1.0); TOTAL PROTEIN 5.3 g/dL (6.4-8.2)
[2017-10-21 08:41] LABS: HCO3 29.9 mmol/L (22.0-26.0); PO2 76.7 mmHg (80.0-100.0); pH 7.338 (7.360-7.450); sO2 94.3 % (92.0-98.0)
[2017-10-21 09:02] LABS: HYPOCHROMASIA SLIGHT; POLYCHROMASIA SLIGHT
[2017-10-21 16:10] LABS: BE(vivo) 9.1 mmol/L (-2 to +3); HCO3 35.3 mmol/L (22.0-26.0); PCO2 58.6 mmHg (35.0-45.0); pH 7.398 (7.360-7.450)
[2017-10-21 20:21] LABS: BE(vivo) 6.3 mmol/L (-2 to +3); PCO2 45.8 mmHg (35.0-45.0); PO2 93.4 mmHg (80.0-100.0); pH 7.449 (7.360-7.450); sO2 97.4 % (92.0-98.0)
[2017-10-22] VITALS (47 sets, daily range): BP systolic 105–144; BP diastolic 54–110
[2017-10-22 05:21] LABS: HEMATOCRIT 25.4 % (37.0-47.0); HEMOGLOBIN 8.5 gm/dL (12.0-15.0); MCH 30.6 pg (26.0-34.0); MCHC 33.3 g/dL (28.0-37.0); MCV 91.9 fL (80.0-100.0); PLATELET COUNT 201 thou/uL (150-400); RBC 2.76 mil/uL (4.20-5.00); RDW 16.2 % (10.5-14.5); WBC 8.3 thou/uL (4.0-11.0)
[2017-10-22 05:39] LABS: ALBUMIN 2.4 g/dL (3.4-5.0); CALCIUM 7.3 mg/dL (8.5-10.1); MAGNESIUM 2.2 mg/dL (1.8-2.4); POTASSIUM 3.7 mmol/L (3.5-5.1); TOTAL BILIRUBIN 0.3 mg/dL (<0.1-1.0); TOTAL PROTEIN 5.7 g/dL (6.4-8.2)
[2017-10-22 07:54] LABS: ABSOLUTE NEUTROPHILS 7.7 thou/uL (1.4-8.2); ANISOCYTOSIS 1+; POLYCHROMASIA OCCASIONAL
[2017-10-23] VITALS (11 sets, daily range): BP systolic 121–141; BP diastolic 58–79
[2017-10-23 23:09] LABS: ADENOVIRUS Negative (Negative); INFLUENZA A Negative (Negative); INFLUENZA B Negative (Negative); METAPNEUMOVIRUS Negative (Negative); PARAINFLUENZA 1 Negative (Negative); PARAINFLUENZA 2 Negative (Negative); PARAINFLUENZA 3 Negative (Negative); RHINOVIRUS Negative (Negative); RSV A Negative (Negative); RSV B Negative (Negative)
[2017-10-24 04:29] VITALS: BP 157/79
[2017-10-24 06:13] LABS: HEMATOCRIT 29.5 % (37.0-47.0); HEMOGLOBIN 9.5 gm/dL (12.0-15.0); MCH 30.2 pg (26.0-34.0); MCHC 32.1 g/dL (28.0-37.0); MCV 93.9 fL (80.0-100.0); RBC 3.15 mil/uL (4.20-5.00); RDW 15.3 % (10.5-14.5); WBC 7.9 thou/uL (4.0-11.0)
[2017-10-24 06:26] LABS: ALBUMIN 2.4 g/dL (3.4-5.0); CALCIUM 6.9 mg/dL (8.5-10.1); CREATININE 0.9 mg/dL (0.6-1.0); MAGNESIUM 2.3 mg/dL (1.8-2.4); PHOSPHORUS 2.2 mg/dL (2.5-4.9); POTASSIUM 4.7 mmol/L (3.5-5.1)
[2017-10-24 08:14] VITALS: BP 155/83
[2017-10-24 11:46] VITALS: BP 153/74
[2017-10-24 16:54] VITALS: BP 140/77
[2017-10-24 19:26] VITALS: BP 137/59
[2017-10-25] VITALS (7 sets, daily range): BP systolic 122–153; BP diastolic 60–83
[2017-10-25 05:21] LABS: BE(vivo) 7.1 mmol/L (-2 to +3); HCO3 34.2 mmol/L (22.0-26.0); PCO2 63.1 mmHg (35.0-45.0); PO2 71.6 mmHg (80.0-100.0); pH 7.352 (7.360-7.450); sO2 93.2 % (92.0-98.0)
[2017-10-26 04:00] VITALS: BP 153/76
[2017-10-26 09:50] VITALS: BP 160/66
[2017-10-26 17:42] VITALS: BP 153/789
[2017-10-27 04:20] VITALS: BP 160/77
[2017-10-27 06:12] LABS: HEMATOCRIT 31.7 % (37.0-47.0); MCH 29.4 pg (26.0-34.0); MCHC 31.7 g/dL (28.0-37.0); MCV 92.8 fL (80.0-100.0); RBC 3.41 mil/uL (4.20-5.00); RDW 15.6 % (10.5-14.5); WBC 12.5 thou/uL (4.0-11.0)
[2017-10-27 06:32] LABS: ANION GAP < 0 mmol/L (7-16); BUN 27 mg/dL (7-18); CALCIUM 7.5 mg/dL (8.5-10.1); CHLORIDE 101 mmol/L (98-107); CO2 39 mmol/L (21-32); CREATININE 0.7 mg/dL (0.6-1.0); GLUCOSE 108 mg/dL (74-106); POTASSIUM 4.7 mmol/L (3.5-5.1); SODIUM 139 mmol/L (136-145)
[2017-10-27 07:38] VITALS: BP 156/69
[2017-10-27] MEDS ORDERED: CEFDINIR300 MG PO (09:32)
[2017-10-27] MEDS ORDERED: AZITHROMYCIN 2250 MG PO (09:32)
[2017-10-27] MEDS ORDERED: PACERONE 200 M200 M1 PO (09:33)
[2017-10-27] MEDS ORDERED: HYDROCODON-ACE1 EAC7 PO (09:34)
[2017-10-27] MEDS ORDERED: PREDNISONE 10 M10 MG PO (09:35)
[2017-10-27 11:23] VITALS: BP 154/73
[2017-10-27 12:48] VITALS: BP 154/73
[2017-10-27 17:18] VITALS: BP 154/73
== END 2017-10-27 18:13 | disposition home health service (06) | DRG 208 ==
LOC: ER 08:58 → EROBS 10:43 → ICU 10:43 → 3W 10-23 18:37
PROVIDERS: Emergency Medicine; Hospitalist; Internal Medicine Geriatric Medicine; Internal Medicine Pulmonary Disease; Registered Nurse
PROC: 5A1945Z Respiratory Ventilation, 24-96 Consecutive Hours (ICD-10-PCS; principal; 2017-10-20)
PROC: 0BH17EZ Insertion of Endotracheal Airway into Trachea, Via Natural or Artificial Opening (ICD-10-PCS; 2017-10-20)
PROC: 02HV33Z Insertion of Infusion Device into Superior Vena Cava, Percutaneous Approach (ICD-10-PCS; 2017-10-20)
PROC: 5A09357 Assistance with Respiratory Ventilation, Less than 24 Consecutive Hours, Continuous Positive Airway Pressure (ICD-10-PCS; 2017-10-21)
PROC: 5A09357 Assistance with Respiratory Ventilation, Less than 24 Consecutive Hours, Continuous Positive Airway Pressure (ICD-10-PCS; 2017-10-22)
PROC: 5A09357 Assistance with Respiratory Ventilation, Less than 24 Consecutive Hours, Continuous Positive Airway Pressure (ICD-10-PCS; 2017-10-23)
PROC: 5A09357 Assistance with Respiratory Ventilation, Less than 24 Consecutive Hours, Continuous Positive Airway Pressure (ICD-10-PCS; 2017-10-24)
PROC: 5A09357 Assistance with Respiratory Ventilation, Less than 24 Consecutive Hours, Continuous Positive Airway Pressure (ICD-10-PCS; 2017-10-25)
PROC: 5A09357 Assistance with Respiratory Ventilation, Less than 24 Consecutive Hours, Continuous Positive Airway Pressure (ICD-10-PCS; 2017-10-26)
DX: J96.21 Acute and chronic respiratory failure with hypoxia (principal); J18.9 Pneumonia, unspecified organism; J44.1 Chronic obstructive pulmonary disease with (acute) exacerbation; J44.0 Chronic obstructive pulmonary disease with (acute) lower respiratory infection; J96.22 Acute and chronic respiratory failure with hypercapnia; E11.9 Type 2 diabetes mellitus without complications; I48.0 Paroxysmal atrial fibrillation; I10 Essential (primary) hypertension; J11.1 Influenza due to unidentified influenza virus with other respiratory manifestations; G47.33 Obstructive sleep apnea (adult) (pediatric); I25.10 Atherosclerotic heart disease of native coronary artery without angina pectoris; I35.0 Nonrheumatic aortic (valve) stenosis; E78.00 Pure hypercholesterolemia, unspecified; F41.8 Other specified anxiety disorders; Z87.81 Personal history of (healed) traumatic fracture; Z87.891 Personal history of nicotine dependence; Z85.3 Personal history of malignant neoplasm of breast; Z86.711 Personal history of pulmonary embolism; Z99.81 Dependence on supplemental oxygen; Z95.828 Presence of other vascular implants and grafts; Z92.3 Personal history of irradiation
CPT/HCPCS: 10078; 10779; 10879; 27000